=== PATIENT | male | born 2000 | race Caucasian/White ===

== ENCOUNTER 2023-03-11 10:44 | Emergency (ER) | payer OTHER ==
[2023-03-11] MEDS ORDERED: Bacitracin Oint 1 GM U/D Packet TOP ONE (12:12)
== END 2023-03-11 12:31 | disposition home or self-care (01) ==
LOC: MW.ED 10:44
DX: S00.83XA Contusion of other part of head, initial encounter (principal); X58.XXXA Exposure to other specified factors, initial encounter
CPT/HCPCS: 70450; 70450-26; 70486; 70486-26; 99283; 99284